=== PATIENT | female | born 1960 | race Two or more races ===

== ENCOUNTER 2018-08-01 23:33 | Emergency (ER) | payer OTHER ==
[~2018-08-01] VITALS: Ht 162.6 cm; Wt 55.4 kg
[2018-08-01 23:36] VITALS: Ht 162.6 cm; Wt 55.4 kg
[2018-08-02 00:51] VITALS: BP 131/88
== END 2018-08-02 00:51 | disposition home or self-care (01) ==
LOC: ED 23:33
DX: S20.212A Contusion of left front wall of thorax, initial encounter (principal); M72.2 Plantar fascial fibromatosis; M77.31 Calcaneal spur, right foot; R03.0 Elevated blood-pressure reading, without diagnosis of hypertension; W22.8XXA Striking against or struck by other objects, initial encounter; Y93.89 Activity, other specified; Y92.89 Other specified places as the place of occurrence of the external cause; Y99.8 Other external cause status
CPT/HCPCS: Q0092

== ENCOUNTER 2018-08-10 23:29 | Emergency (ER) | payer OTHER ==
[2018-08-11 01:58] LABS: CALCIUM 9.4 mg/dL (8.5-10.1); CARBON DIOXIDE 25.7 mmol/L (21-32); CHLORIDE SERUM 107 mmol/L (98-107); CREATININE SERUM 0.9 mg/dL (0.6-1.0); GFR1 > 60 mL/min; GLUCOSE SERUM 106 mg/dL (74-106); POTASSIUM SERUM 3.4 mmol/L (3.5-5.1); SODIUM SERUM 143 mmol/L (136-145)
[2018-08-11 02:03] LABS: ALBUMIN 3.8 g/dL (3.4-5.0); ALKALINE PHOSPHATASE 65 U/L (46-116); ALT/SGPT 13 U/L (14-59); AST/SGOT 20 U/L (15-37); BILIRUBIN TOTAL 0.65 mg/dL (0.20-1.00)
[2018-08-11 02:04] LABS: BASOPHIL % 0.5 % (0-2); RED CELL DISTRIBUTION WIDTH 12.7 % (11.5-14.5)
[2018-08-11 02:08] LABS: PLATELET COUNT 288 x10^3mcL (130-400)
[2018-08-11 02:17] LABS: UA SPECIFIC GRAVITY <=1.005 (1.005-1.035); microscopic required? YES; urine erythrocyte 1+ (NEGATIVE)
[2018-08-11 03:24] VITALS: BP 141/81
== END 2018-08-11 03:24 | disposition home or self-care (01) ==
LOC: ED 23:29
PROVIDERS: Emergency Medicine
DX: N39.0 Urinary tract infection, site not specified (principal); R53.1 Weakness; R06.00 Dyspnea, unspecified
CPT/HCPCS: 36415; 83880; Q0092